=== PATIENT | male | born 1970 | race Caucasian/White ===

== ENCOUNTER 2024-03-11 11:38 | Emergency (ER) | payer OTHER, SELFPAY ==
[2024-03-11 11:43] VITALS: BP 168/99
--- NOTE | 2024-03-11 12:59 | ED.GENMED ---
History of Present Illness
General
Chief Complaint: Musculo-Skeletal Complaint
Source: patient
Exam Limitations: none
Time Seen by Provider: 03/11/24 12:19
Nursing documentation reviewed up to this point in time: agreed with
History of Present Illness
History of Present Illness:
pt is a 53 y/o M with no sig pmh
here with atraumatic R knee pain for a week
he says he has had this pain without any initaitng injury; he does go to the gym but denies truama
pain is with walking
'i can hardly walk'
pt has not had any swelling, redness, warmth, ewakness, numbness
nothing tried for pain
smoker
Past History
Past History
ED Past Medical History: None
Social History
Tobacco: Smoker
Alcohol: Occasional
Drug: None
Personal:
Review of Systems
Review of Systems
Allergies reviewed?: Yes
All Other Systems: Not applicable
Phy Exam
Physical Exam
Physical Exam:
GENERAL: Alert , in no apparent distress, comfortable at rest, ambulating normally
NEUROLOGICAL: Alert and oriented, no focal neuro deficits, , 5/5 strength, sensation intact, full weight bearing, walking easily
SKIN: Warm and dry, no erythema
MUSCULOSKELETAL: normal inspection R knee
full rom
ligaments stable
nontender
stands easily
no calf swelling
PSYCH: Normal and appropriate interaction.
Course
Orders/Labs/Results
Orders:
Orders
03/11/24 11:47
Knee, Right 4 or More Views [CR Knee- Right 4 Or More View*] Urgent
Comment:
Reason For Exam: pain
03/11/24 13:51
Ibuprofen [Motrin] 600 mg PO NOW STA
Vital Signs
Initial and Last Documented VS:
Initial Vital Signs
Temp Pulse Resp BP Pulse Ox
37.1 C 94 16 168/99 99
03/11/24 11:43 03/11/24 11:43 03/11/24 11:43 03/11/24 11:43 03/11/24 11:43
Last Documented Vital Signs
Temp Pulse Resp BP Pulse Ox
37.1 C 94 16 168/99 99
03/11/24 11:43 03/11/24 11:43 03/11/24 14:17 03/11/24 11:43 03/11/24 11:43
MDM/Problems Addressed
Differential Diagnosis Includes:
knee pain, arthritis, gout, sprain, orlando's cyst
MDM/Problems Addressed:
53 y/o M
says he has no fall but has had 1 week of R knee pain
no swelling, no redneess, no warmth
no calf pain/swellign, no numbness
moves it well; ambulates without assistance very steady yet tells me and triage that he cannot walk
nothing tkaen fo rpain
knee normal inspection
full ROM
no effusion
no erthema
calf and foot normal pulse normal
xray indep reviewed, neg
d/c home
nsaids
*Critical Care Note
Total Time (30-74mins, 75-104mins- exclusive of procedures): Not Applicable
ED Attending Note
-
Portions of this chart may have been created with voice recognition software.� Occasional wrong word or��sound alike� substitutions may have occurred due to the inherent limitations of voice recognition software.
Discharge Plan
Departure
Patient Disposition: Home (Routine Discharge)
Date of Disposition: 03/11/24
Time of Disposition: 13:48
Patient with high blood pressure during this ER visit?: Yes
Condition: Fair
Covid-19: Not Applicable
Discharge Problem:
Knee joint pain
Instructions: Knee Pain (DC), BLOOD PRESSURE
Prescriptions:
New
ibuprofen 600 mg tablet
600 mg PO Q8H PRN (Reason: Pain) Qty: 20 0RF
Referrals:
Ervin Casiano MD [Active] - Follow up in 5-7 days
Activity Restrictions/Additional Instructions:
WE ARE NOT SURE THE CAUSE OF YOUR KNEE PAIN
YOUR XRAY IS NORMAL
TAKE MOTRIN 600 MG EVERY 8 HOURS WITH FOOD FOR PAIN FO 3-5 DAYS
IF STILL HAVING PAIN IN A FEW DAYS, FOLLOW UP WITH AN ORTHOPEDIST
RETURN FO RANY CONCERNS LIKE FEVER, REDNESS, SWELLING, ETC
Interventions
Interventions:
*Risk Screen - Suicide Last Done: 03/11/24 11:43
*General Assessment Last Done: 03/11/24 12:37
*Neglect/Abuse Screening Last Done: 03/11/24 11:43
ED- Fall Risk Assessment Last Done: 03/11/24 12:36
*Nursing Disposition Last Done: 03/11/24 14:17
ED-Musculoskeletal Assessment Last Done: 03/11/24 12:36
Discharge Date and Time
Discharge Date/Time: 03/11/24 14:18
Print Language: ROMANIAN
--- NOTE | 2024-03-11 13:36 | EDRN ---
Pt walked into Triage room during other patients triage. Asked to return to waiting area, pt reports he left and is now back, shown to [facility] where pt is bedded.
[2024-03-11] MEDS: MOTRIN 600 MG PO (13:59)
== END 2024-03-11 14:18 | disposition home or self-care (01) ==
LOC: EMR 11:38
PROVIDERS: EMERGENCY PHYSICIAN Emergency Medicine
DX: M25.561 Pain in right knee (principal); F17.200 Nicotine dependence, unspecified, uncomplicated
CPT/HCPCS: 99283; 73564

== ENCOUNTER 2024-04-04 01:14 | Emergency (ER) | payer OTHER, SELFPAY ==
[2024-04-04 01:19] VITALS: BP 113/60
[2024-04-04 01:21] VITALS: BP 101/86
[2024-04-04 01:48] LABS: % Basophils 0.6 % (0-2); % Eosinophils 4.1 % (0-6); % Immature Granulocytes 1.2 % (0-0.5); % Monocytes 1.8 % (1.7-9.3); % Neutrophils 73.3 % (42.2-75.2); Absolute Eosinophils 0.3 10^3/uL (0-0.7); Absolute Immature Granulocytes 0.1 10^3/uL (0-0.05); Absolute Lymphocytes 1.3 10^3/uL (1.2-3.4); Absolute Monocytes 0.1 10^3/uL (0.1-0.6); Absolute Neutrophils 4.9 10^3/uL (1.4-6.5); Hematocrit 46.3 % (39.0-52.0); Hemoglobin 14.6 g/dL (13.0-18.0); Mean Corp Hgb Conc. 31.5 g/dL (33.0-37.0); Mean Corpuscular Volume 85.7 fL (80.0-94.0); Mean Platelet Volume 9.2 fL (7.4-10.4); Nucleated Red Blood Cells % 0 % (-); Platelet Count 346 10^3/uL (130-400); Red Cell Dist. Width 18.7 % (11.5-14.5); White Blood Cell Count 6.6 10^3/uL (4.8-10.8)
[2024-04-04 02:00] VITALS: BP 112/65
--- NOTE | 2024-04-04 02:27 | ED.GENMED ---
History of Present Illness
General
Chief Complaint: Unresponsive
Time Seen by Provider: 04/04/24 01:41
History of Present Illness
History of Present Illness:
53-year-old male without reported medical history presenting to the emergency department for an unresponsive episode. Patient was leaving a restaurant with his fianc�e who was driving. Patient subsequent became unresponsive. He she tried to wake
him up by rubbing his chest, however was unable to do so. Medics were called. On medics arrival, noted to be agonal he breathing with pinpoint pupils so Narcan was administered with appropriate response. Patient arrives with increased
responsiveness, however still somnolent. Patient denies taking any medications or drugs. Patient overall noncooperative with examination and questioning, aggressive and agitated. No additional history obtained by patient at this time. However,
yulissa� had relayed to medics that there was remote history of cocaine abuse in the past.
Past History
Past History
ED Past Medical History: None
Social History
Tobacco: Smoker
Alcohol: Occasional
Drug: None
Personal:
Phy Exam
Physical Exam
Physical Exam:
General: somnolent but arousable
HEENT: oral airway in place. Pinpoint pupils
Neck: appears supple
CV: Normal heart rate, regular rhythm
Resp: No accessory muscle use, no increased work of breathing, lungs clear to auscultation bilaterally
Abd: no distension, non-tender
Extremities: No deformities, no swelling, no erythema
Neuro: alert, responsive to tactile stimuli
: deferred
Rectal: deferred
Psych: Normal affect
Skin: Intact
Course
Orders/Labs/Results
Orders:
Orders
04/04/24 01:29
Naloxone [Narcan] 2 mg .ROUTE .STK-MED ONE
04/04/24 01:30
Electrocardiogram (*1) Urgent
Reason for Study: Other
Other Reason for Exam: Potential overdose
Cardiac Monitoring- Treatment ONCE
EKG- Treatment ONCE
IV Insert/Care/Rem.- Treatment PRN
Pulse Ox/spot Check [RESP] Urgent
Quantity: 1
04/04/24 01:34
Alcohol Urgent
Complete Blood Count/With Diff Urgent
Urine Drug Abuse Screen Urgent
Date Specimen was Collected: 04/04/24
Time Specimen was Collected: 01:30
04/04/24 01:38
Lorazepam [Ativan] 2 mg .ROUTE .STK-MED ONE
04/04/24 01:41
CT Head W/o Iv Contrast Urgent
Comment:
Reason For Exam: AMS
04/04/24 02:13
Comprehensive Metabolic Panel Urgent
Abnormal Lab Results
04/04/24
01:34
MCHC 31.5 L g/dL
(33.0-37.0)
RDW 18.7 H %
(11.5-14.5)
Abs Immat Gran (auto) 0.1 H 10^3/uL
(0-0.05)
Immature Gran % 1.2 H %
(0-0.5)
Lymphocytes % 19.0 L %
(20.5-51.1)
04/04/24 01:34
Vital Signs
Initial and Last Documented VS:
Initial Vital Signs
Pulse Resp
84 17
04/04/24 01:18 04/04/24 01:18
Last Documented Vital Signs
Pulse Resp BP Pulse Ox
97 12 112/65 93
04/04/24 02:15 04/04/24 02:15 04/04/24 02:00 04/04/24 02:15
MDM/Problems Addressed
MDM/Problems Addressed:
53-year-old male without reported past medical history presenting for an unresponsive episode. Vital signs are normal.
On exam, patient appears somnolent, however is arousable. He arrives with an oral airway in place. Pinpoint pupils with report that prior to arrival he did receive Narcan with appropriate response. At this time primary concern for toxic ingestion
of an opiate. Plan to redose Narcan as needed. Oral airway removed and patient stable on nasal cannula. As examining patient, becoming more aggressive and agitated, refusing interventions. Multiple attempts to verbally de-escalate. Do not want
to administer additional sedated medications given concern for present intoxication, which may worsen clinical condition and breathing. For this reason patient restrained. Plan for laboratory analysis, CT brain imaging, urinalysis.
14:30 - Patient becoming more more aggressive, demanding release from the hospital. Yulissa� is at bedside, trying to verbally de-escalate as well. Unsuccessful. At this time patient is speaking clearly. Did communicate to patient on multiple
occasions that he was unresponsive prior to arrival, with concern for the state that he arrived in. Patient continues to demand that we release him, threatening myself and staff if we do not release him. He is currently breathing normally, no
respiratory distress. With yulissa� at bedside, explained that if patient leaves he will be leaving AGAINST MEDICAL ADVICE with concern that he could go home, become unresponsive again which could lead to cardiac and/or respiratory arrest. Patient
verbalizes understanding. Did discuss with who notes that she does feel safe at home despite patient's threatening remarks.
*Critical Care Note
Total Time (30-74mins, 75-104mins- exclusive of procedures): Not Applicable
ED Attending Note
-
Portions of this chart may have been created with voice recognition software.� Occasional wrong word or��sound alike� substitutions may have occurred due to the inherent limitations of voice recognition software.
Discharge Plan
Departure
Patient Disposition: Against Medical Advice
Date of Disposition: 04/04/24
Time of Disposition: 02:19
Patient with high blood pressure during this ER visit?: No
Condition: Fair
Discharge Problem:
Altered mental status, Episode of unresponsiveness
Instructions: Substance use disorder
Prescriptions:
No Action
ibuprofen 600 mg tablet
600 mg PO Q8H PRN (Reason: Pain) Qty: 20 0RF
Referrals:
NONE,* [Family Provider] -
Activity Restrictions/Additional Instructions:
You were seen in the emergency department for an unresponsive episode
You were suspected to have ingestion of unknown substance. You were given Narcan by the medics who brought you to the hospital, which helped you wake up. Narcan is a medication that is used to reverse opiate type of medications. When he arrived
to the hospital, we were concerned about your breathing, and the episode that brought you to the hospital prior to arrival. You adamantly refused all types of interventions with the understanding that you could go home with an unknown medical
condition that could lead to cardiac and/or respiratory arrest. You verbalized understanding, and also made threatening remarks to medical staff. Multiple attempts were made to investigate the unresponsive episode about you to the hospital
including laboratory analysis, urinalysis, CT imaging of your brain. You again refused despite multiple attempts. You are leaving the hospital AGAINST MEDICAL ADVICE
Please follow-up closely with your primary care physician.
Return to the emergency department for any worsening of your symptoms, or any development of chest pain, difficulty breathing, abdominal pain with persistent vomiting and inability to tolerate food or liquid by mouth (concern for dehydration),
weakness, headache or confusion, fever greater than 100.4, or any additional symptoms that are concerning to you.
Thank you for choosing [facility].
Interventions
Interventions:
*General Assessment Last Done: 04/04/24 01:21
ED- Fall Risk Assessment Last Done: 04/04/24 01:45
ED- Neurological Assessment Last Done: 04/04/24 01:45
Discharge Date and Time
Print Language: CONGOLESE
[2024-04-04 02:34] LABS: Alcohol 104 mg/dl
== END 2024-04-04 03:03 | disposition left against medical advice (07) ==
LOC: EMR 01:14
PROVIDERS: EMERGENCY PHYSICIAN Student in an Organized Health Care Education/Training Program
DX: R55 Syncope and collapse (principal); Z53.29 Procedure and treatment not carried out because of patient's decision for other reasons; F17.200 Nicotine dependence, unspecified, uncomplicated; F11.11 Opioid abuse, in remission; Z88.1 Allergy status to other antibiotic agents
CPT/HCPCS: 99283; 82077; 85025; 93005